=== PATIENT | female | born 1955 | race Two or more races ===

== ENCOUNTER 2017-02-19 12:17 | Day surgery (SDC) | payer OTHER ==
[~2017-02-19] VITALS: Ht 160 cm; Wt 74.0 kg
[~2017-02-19 12:17] MED LIST: LANT3I SC; LISI20TA11 PO; LORA5SOL74 PO; MTF1000T PO; OMEP20CA16 PO; glyburide; januvia
[2017-02-19 14:36] VITALS: Ht 160 cm; Wt 74.0 kg
[2017-02-19] MEDS ORDERED: FIBER (14:41)
[2017-02-19 15:42] VITALS: BP 122/75; PULSE 79; RESP 16
[2017-02-19] MEDS ORDERED: PROPOFOL 20 ML ONE (17:11)
--- NOTE | 2017-02-19 17:11 | OPPN ---
Date/Time of Note Date/Time of Note DATE: 02/19/17 TIME: 17:06 Proc Note GI Procedure Date 02/19/17 Pre-procedure Diagnosis * Surveillance for esophageal varices Post-procedure Diagnosis Assessment: * No evidence of esophageal varices * Mild distal esophagitis * Mild gastritis. Rule out H. pylori infection. Biopsies obtained * Small Xanthoma 6 mm antrum. Plan: * Continue present regimen * Review pathology * Surveillance endoscopy in 1 year . Procedure Performed: Endoscopy (With biopsies) Surgeon SLIM MIN MD Dba none Anesthesia Type: MAC Anesthesiologist: GABE MCINTOSH MD Tourniquet Time none EBL none Transfusion required none Biopsy 1: Gastric antrum/Xanthoma Grafts/Implants none Tubes/Drains none Complication(s) none Pt Condition post procedure: stable Disposition: home Indications: other (Surveillance esophageal varices) Procedure Description After informed consent, with the patient/relatives understanding the procedure, its indications, potential risks and complications, including but not limited to : allergic reaction, bleeding, perforation or infection, and after all pertinent questions were answered to the patients satisfaction, the patient/ relatives signed witnessed informed consent. Following this, premedication was administered slowly IV push under careful cardiovascular and respiratory monitoring with pulse oximetry, automatic blood pressure, and transitional nurse. Once the sedative effect was achieved the patient was place in the left lateral decubitus, the panendoscope was introduced and advanced under visual control. Careful examination of the upper gastrointestinal tract, both on insertion as well as withdrawal of the instrument disclosing the following findings: ESOPHAGUS: the mucosa of the entire esophagus was carefully examined and showed the following findings: There is no evidence of esophageal varices. There is mild erythema of the mucosa at the esophagogastric junction. Otherwise the mucosa appears within normal limits. There is no evidence of varices, neoplasm, or stricture. No Hiatal Hernia identified. STOMACH: Upon entrance to the stomach air was insufflated, the gastric boston distended normally. The mucosa of the fundus, body and antrum of the stomach was carefully examined both head-on and on retroflexion, and showed the following findings: There is mild erythema and edema of the mucosa of the antrum. A small 6 mm Xanthoma cells are present. Biopsies were obtained. Otherwise the mucosa appears within normal limits with no abnormalities. There is no evidence of ulcers or neoplasm. PYLORUS: The pylorus was carefully examined and showed the following findings: []the pylorus appears patent and within normal limits, with no evidence of gastric outlet obstruction. DUODENUM: The duodenal mucosa was carefully examined in the duodenal bulb as well as the second portion of the duodenum and showed the following findings: []the mucosa appears unremarkable with no evidence of duodenitis, ulcer or neoplasm. Copies To: CC: SLIM MIN MD, MORDO MD Feb 19, 2017 17:11
[2017-02-19 17:37] VITALS: BP 123/75; RESP 20
== END 2017-02-19 17:15 | disposition home or self-care (01) ==
LOC: GIL 12:17
PROVIDERS: ATTEND Internal Medicine Gastroenterology
DX: K29.50 Unspecified chronic gastritis without bleeding (principal); K20.8 Other esophagitis; E78.5 Hyperlipidemia, unspecified; E11.9 Type 2 diabetes mellitus without complications; I10 Essential (primary) hypertension
CPT/HCPCS: 43239; 82962; 88305; 88312; Z7610